=== PATIENT | female | born 1985 | race Caucasian/White ===

== ENCOUNTER 2017-12-25 21:33 | Emergency (ER) | payer MEDICAID ==
[2017-12-25 23:05] LABS: BASOPHIL % 1.3 % (0-2); PLATELET COUNT 293 x10^3mcL (130-400); RED CELL DISTRIBUTION WIDTH 13.6 % (11.5-14.5)
[2017-12-25 23:34] LABS: CALCIUM 8.3 mg/dL (8.5-10.1); CHLORIDE SERUM 101 mmol/L (98-107); CREATININE SERUM 0.6 mg/dL (0.6-1.0); GFR1 > 60 mL/min; GLUCOSE SERUM 90 mg/dL (74-106); POTASSIUM SERUM 3.9 mmol/L (3.5-5.1); SODIUM SERUM 138 mmol/L (136-145)
[2017-12-25 23:39] LABS: ALBUMIN 4.1 g/dL (3.4-5.0); ALKALINE PHOSPHATASE 255 U/L (46-116); ALT/SGPT 136 U/L (14-59); AST/SGOT 78 U/L (15-37); BILIRUBIN TOTAL 0.3 mg/dL (0.20-1.00)
[2017-12-25 23:43] LABS: TOTAL PROTEIN, SERUM 8.9 g/dL (6.4-8.2)
[2017-12-25 23:44] LABS: AMPHETAMINE QUAL UR NONE DETECTED (See below)
[2017-12-26 01:30] VITALS: BP 129/76
== END 2017-12-26 01:30 | disposition home or self-care (01) ==
LOC: ED 21:33
PROVIDERS: Emergency Medicine
DX: R07.89 Other chest pain (principal); R09.1 Pleurisy; R05 Cough
CPT/HCPCS: 36415; 83880; 85378; Q0092